=== PATIENT | female | born 2000 | race African-American/Black ===

== ENCOUNTER 2023-02-07 18:33 | Day surgery (SDC) | payer SELFPAY ==
[2023-02-07] MEDS ORDERED: hydrALAZINE 20 MG/ML VIAL SLOW IVP PRN (19:52)
[2023-02-07 20:44] LABS: Bilirubin Neg (Negative); Blood, Urine Negative (Negative); Clarity Clear (Clear); Glucose, Urine (Dipstick) >=1000 mg/dL (Negative); Ketone, Urine Negative (Negative); Leukocyte Negative (Negative); Nitrite Negative (Negative); Protein, Urine (Dipstick) 30 mg/dl (Neg-Trace); Specific Gravity, Urine 1.015 (1.005-1.030); Urobilinogen Normal mg/dL (Less than 2)
[2023-02-07 21:00] LABS: Bacteria/HPF Rare-Few HPF (None Seen); CAUTI Indications for Culture Pregnancy; RBC/HPF 0-3 HPF (0-3); Squamous Epithelial 0-3 HPF (0-3); WBC/HPF 0-3 HPF (0-3)
[2023-02-07 21:01] LABS: Urine Culture Reflex Yes Yes
== END 2023-02-07 23:26 | disposition home or self-care (01) ==
LOC: CSHLD/OP 18:33
PROVIDERS: ATTEND Family Medicine
DX: O99.891 Other specified diseases and conditions complicating pregnancy (principal); R10.9 Unspecified abdominal pain; O47.03 False labor before 37 completed weeks of gestation, third trimester; Z3A.33 33 weeks gestation of pregnancy; Z88.1 Allergy status to other antibiotic agents
CPT/HCPCS: 81001; 87077; 87086; 87480; 87510; 87660

== ENCOUNTER 2023-02-19 05:42 | Day surgery (SDC) | payer BC ==
[2023-02-19 06:19] VITALS: BMI 22.3
[2023-02-19] MEDS ORDERED: hydrALAZINE 20 MG/ML VIAL SLOW IVP PRN (07:18)
== END 2023-02-19 09:50 | disposition home or self-care (01) ==
LOC: CSHLD/OP 05:42
PROVIDERS: ATTEND Emergency Medicine
DX: O99.891 Other specified diseases and conditions complicating pregnancy (principal); N89.8 Other specified noninflammatory disorders of vagina; O24.415 Gestational diabetes mellitus in pregnancy, controlled by oral hypoglycemic drugs; Z3A.35 35 weeks gestation of pregnancy; Z79.84 Long term (current) use of oral hypoglycemic drugs; Z88.1 Allergy status to other antibiotic agents
CPT/HCPCS: 87480; 87510; 87660; 99283

== ENCOUNTER 2023-03-03 08:42 | Day surgery (SDC) | payer BC ==
[2023-03-03 09:11] VITALS: BMI 23.0
[2023-03-03] MEDS ORDERED: hydrALAZINE 20 MG/ML VIAL SLOW IVP PRN (09:45)
[2023-03-03 13:06] LABS: Bilirubin Neg (Negative); Blood, Urine Negative (Negative); Clarity Clear (Clear); Glucose, Urine (Dipstick) Normal (Negative); Ketone, Urine Negative (Negative); Leukocyte Negative (Negative); Nitrite Negative (Negative); Protein, Urine (Dipstick) 30 mg/dl (Neg-Trace); Specific Gravity, Urine 1.005 (1.005-1.030); Urobilinogen Normal mg/dL (Less than 2)
[2023-03-03 13:14] LABS: Bacteria/HPF Rare-Few HPF (None Seen); CAUTI Indications for Culture Pregnancy; RBC/HPF None Seen HPF (0-3); Squamous Epithelial 0-3 HPF (0-3); Urine Culture Reflex Yes Yes; WBC/HPF None Seen HPF (0-3)
== END 2023-03-03 11:59 | disposition home or self-care (01) ==
LOC: CSHLD/OP 08:42
PROVIDERS: ATTEND Student in an Organized Health Care Education/Training Program
DX: O99.891 Other specified diseases and conditions complicating pregnancy (principal); R10.30 Lower abdominal pain, unspecified; O24.419 Gestational diabetes mellitus in pregnancy, unspecified control; Z88.8 Allergy status to other drugs, medicaments and biological substances; Z79.84 Long term (current) use of oral hypoglycemic drugs; Z3A.36 36 weeks gestation of pregnancy
CPT/HCPCS: 81001; 87086; 87480; 87510; 87660; 99284

== ENCOUNTER 2025-03-03 16:25 | Inpatient (IN) | payer SELFPAY ==
[2025-03-03 17:40] LABS: Actual Bicarbonate (HCO3v) 8.5 mEq/L (22-28); Analyzer IN Cardio CS ER; Base Excess -20.8 mEq/L (-2 - +2); Calcium, Ionized (venous) 1.20 mmol/L (1.16-1.32); Chloride (VBG) 107 mmol/L (98-106); Hematocrit-VBG 43 % (36.0-47.0); Hemoglobin (Hb) 14.6 g/dL (11.7-15.5); Potassium (VBG) 4.97 mmol/L (3.70-5.30); Puncture Site Other Site; RapidComm Collect By LAB; Sodium 140 mmol/L (133-146)
[2025-03-03 17:58] LABS: ALT (SGPT) 12 U/L (Less than 34); AST (SGOT) 19 U/L (11-34); Albumin 4.2 g/dL (3.1-4.5); Alkaline Phosphatase 61 U/L (40-110); Anion Gap 22 mmol/L (10-20); BUN (Urea Nitrogen) 14 mg/dL (7.0-18.7); Bilirubin, Total 0.1 mg/dL (0.3-1.2); Calc. Creatinine Clearance 0 mL/min (70-130); Calcium 8.4 mg/dL (7.8-10.44); Chloride 110 mmol/L (98-107); Globulin 3.7 g/dL (2.4-3.5); Glucose 215 mg/dL (70-105); Potassium 4.9 mmol/L (3.5-5.1); Sodium 136 mmol/L (136-145)
[2025-03-03 18:06] LABS: Carbon Dioxide 9 mmol/L (22-29)
[2025-03-03] MEDS ORDERED: D5 1/2 NS w/20 mEq KCL 1,000 ML ONE (19:20)
[2025-03-03] MEDS ORDERED: NS 0.9% w/ 20 MEQ KCL 1,000 ML IV PRN ×2 (19:25)
[2025-03-03] MEDS ORDERED: Guaifenesin DM 100-10/5 ML UDCUP PO PRN (19:27)
[2025-03-03] MEDS ORDERED: Acetaminophen 325 MG TAB PO PRN (19:27)
[2025-03-03] MEDS ORDERED: Ondansetron PF 4 MG/2 ML Vial IVP PRN (19:27)
[2025-03-03] MEDS ORDERED: Ketorolac Tromethamine 30 MG (1 mL) VIAL IVP PRN (19:59)
[2025-03-03 20:00] VITALS: BMI 19.9
[2025-03-03] MEDS ORDERED: Magnesium Sulfate In Water 4 GM in Premix 1 BAG IVPB PRN (20:00)
[2025-03-03] MEDS ORDERED: Potassium Chloride 20 MEQ in Premix 1 BAG IVPB PRN (20:00)
[2025-03-03 20:18] LABS: Anion Gap 18 mmol/L (10-20); BUN (Urea Nitrogen) 12 mg/dL (7.0-18.7); Calc. Creatinine Clearance 67 mL/min (70-130); Calcium 8.4 mg/dL (7.8-10.44); Carbon Dioxide 12 mmol/L (22-29); Chloride 109 mmol/L (98-107); Glucose 253 mg/dL (70-105); Magnesium 2.0 mg/dL (1.6-2.6); Potassium 4.8 mmol/L (3.5-5.1); Sodium 134 mmol/L (136-145)
[2025-03-03] MEDS: Oseltamivir 75 MG CAP PO SCH (20:21)
[2025-03-03] MEDS: Mupirocin 1 GM TUBE NASAL DECOLONIZATION NASAL SCH (20:21)
[2025-03-03] MEDS: Electrolyte Replacement Protocol 1 EACH IVPB ONE (20:30)
[2025-03-04 00:01] LABS: Anion Gap 10 mmol/L (10-20); BUN (Urea Nitrogen) 9 mg/dL (7.0-18.7); Calc. Creatinine Clearance 84 mL/min (70-130); Calcium 7.5 mg/dL (7.8-10.44); Carbon Dioxide 15 mmol/L (22-29); Chloride 113 mmol/L (98-107); Glucose 226 mg/dL (70-105); Magnesium 1.7 mg/dL (1.6-2.6); Potassium 4.0 mmol/L (3.5-5.1); Sodium 134 mmol/L (136-145)
[2025-03-04] MEDS: PHOS-NAK 1 PKT PACK PO PRN (00:27)
[2025-03-04] MEDS: INSULIN REGULAR IN 0.9 % NACL 100 ML IVPB SCH (01:18)
[2025-03-04] MEDS: Dextrose 50% Abboject 50 ML SYRINGE SLOW IVP PRN (02:11)
[2025-03-04] MEDS: Benzocaine/Menthol 1 LOZ LOZ PO PRN (03:05)
[2025-03-04] MEDS: D5 1/2 NS w/20 mEq KCL 1,000 ML IV PRN (03:37)
[2025-03-04 03:52] LABS: Hematocrit 32.1 % (34.9-44.5); Hemoglobin 11.0 g/dL (12.0-15.5); Mean Corpuscular Hemoglobin 29.7 pg (27.0-33.0); Mean Corpuscular Volume 86.8 fL (81.6-98.3); Platelet Count 141 10x3/uL (150-450); Red Blood Cell (RBC) Count 3.70 10x6/uL (3.90-5.03); White Blood Cell (WBC) Count 4.93 10x3/uL (3.5-10.5)
[2025-03-04 04:02] LABS: Anion Gap 9 mmol/L (10-20); BUN (Urea Nitrogen) 8 mg/dL (7.0-18.7); Calc. Creatinine Clearance 84 mL/min (70-130); Calcium 7.6 mg/dL (7.8-10.44); Carbon Dioxide 17 mmol/L (22-29); Chloride 112 mmol/L (98-107); Glucose 239 mg/dL (70-105); Magnesium 1.8 mg/dL (1.6-2.6); Potassium 4.2 mmol/L (3.5-5.1); Sodium 134 mmol/L (136-145)
[2025-03-04 04:25] LABS: MDiff Complete? YES
[2025-03-04] MEDS ORDERED: Lantus 1000 UNITS/10 ML VIAL SC SCH (04:30)
[2025-03-04] MEDS: Magnesium 2 GM/50 ML(in water) 2 GM in Premix 1 BAG IVPB SCH (04:36)
[2025-03-04] MEDS: Lantus 1000 UNITS/10 ML VIAL SC SCH ×2 (04:43→11:57)
[2025-03-04] MEDS ORDERED: Glucagon 1 MG/ML KIT IM PRN (08:30)
[2025-03-04] MEDS: Enoxaparin 40 MG (0.4 mL) SYRINGE SC SCH (09:05)
[2025-03-04] MEDS: Oseltamivir 75 MG CAP PO SCH (09:05)
[2025-03-04] MEDS: Pantoprazole 40 MG VIAL IVP SCH (09:05)
[2025-03-04 15:30] LABS: Anion Gap 11 mmol/L (10-20); BUN (Urea Nitrogen) 11 mg/dL (7.0-18.7); Calc. Creatinine Clearance 83 mL/min (70-130); Calcium 8.3 mg/dL (7.8-10.44); Carbon Dioxide 19 mmol/L (22-29); Chloride 105 mmol/L (98-107); Glucose 349 mg/dL (70-105); Potassium 3.9 mmol/L (3.5-5.1); Sodium 131 mmol/L (136-145)
[2025-03-05 04:35] LABS: Anion Gap 14 mmol/L (10-20); BUN (Urea Nitrogen) 9 mg/dL (7.0-18.7); Calc. Creatinine Clearance 111 mL/min (70-130); Calcium 8.3 mg/dL (7.8-10.44); Carbon Dioxide 21 mmol/L (22-29); Chloride 107 mmol/L (98-107); Glucose 353 mg/dL (70-105); Magnesium 1.7 mg/dL (1.6-2.6); Potassium 3.5 mmol/L (3.5-5.1); Sodium 138 mmol/L (136-145)
[2025-03-05] MEDS ORDERED: Lantus 1000 UNITS/10 ML VIAL SC SCH (09:00)
[2025-03-05] MEDS: Lantus 1000 UNITS/10 ML VIAL SC SCH ×2 (09:28→20:06)
[2025-03-06 04:04] LABS: Anion Gap 9 mmol/L (10-20); BUN (Urea Nitrogen) 6 mg/dL (7.0-18.7); Calc. Creatinine Clearance 141 mL/min (70-130); Calcium 7.1 mg/dL (7.8-10.44); Carbon Dioxide 23 mmol/L (22-29); Chloride 113 mmol/L (98-107); Glucose 141 mg/dL (70-105); Potassium 2.7 mmol/L (3.5-5.1); Sodium 142 mmol/L (136-145)
[2025-03-06 04:19] LABS: #Basophils Less than 0.03 10x3/uL (0.0-0.2); #Eosinophils 0.04 10x3/uL (0.0-0.5); #Monocytes 0.31 10x3/uL (0.0-1.1); #Neutrophils 0.90 10x3/uL (1.5-8.4); %Basophils 0.4 % (0.0-2.0); %Eosinophils 1.6 % (0.0-6.0); %Lymphocytes 50.8 % (18.0-47.0); %Monocytes 12.0 % (0.0-10.0); %Neutrophils 34.8 % (40.0-75.0); Hematocrit 24.1 % (34.9-44.5); Hemoglobin 8.4 g/dL (12.0-15.5); Mean Corpuscular Hemoglobin 30.0 pg (27.0-33.0); Mean Corpuscular Volume 86.1 fL (81.6-98.3); Platelet Count 119 10x3/uL (130-400); Red Blood Cell (RBC) Count 2.80 10x6/uL (3.90-5.03); White Blood Cell (WBC) Count 2.58 10x3/uL (3.5-10.5)
[2025-03-06 08:49] LABS: Magnesium 1.6 mg/dL (1.6-2.6)
[2025-03-06] MEDS: Pantoprazole 40 MG DR.TAB PO SCH (09:46)
[2025-03-06 14:41] LABS: Potassium 4.1 mmol/L (3.5-5.1)
[2025-03-06 15:25] VITALS: BP 101/71; TEMP 98.7
== END 2025-03-06 15:35 | disposition home or self-care (01) | DRG 193 ==
LOC: CSHERS 16:25 → CSHICU 18:25
PROVIDERS: ADMIT Student in an Organized Health Care Education/Training Program; ATTEND Internal Medicine
DX: J10.1 Influenza due to other identified influenza virus with other respiratory manifestations (principal); E10.10 Type 1 diabetes mellitus with ketoacidosis without coma
CPT/HCPCS: 36415; 36416; 80048; 82010; 82805; 83735; 84100; 85025; 87081; 96365; 96366; 96375; J1650; J1815; J2470; J3475; J3480; J7030; J7999